=== PATIENT | male | born 1935 | race Caucasian/White ===

== ENCOUNTER 2021-03-26 08:10 | Outpatient (CLI) | payer MEDICARE, OTHER, SELFPAY ==
--- NOTE | ~2021-03-26 | CT_ITS ---
EXAMINATION:CT diagnostic chest wo con DATE: 03/26/2021 08:43 INDICATION: Thoracic aortic aneurysm. TECHNIQUE: Computed tomography (CT) of the chest was performed without intravenous contrast. Automate d exposure control and iterative reconstruction technique were employed. The dose-length product (DLP ) was 232.09 mGy-cm. COMPARISON: None. FINDINGS: There is mild scarring at the lung apices. There is peripheral septal thickening in the inf erior lungs. There are subpleural bands in the lower lobes and lingula. A calcified right lung nodule and calcified right hilar lymph nodes are consistent with old granulomatous disease. No bronchiectas is or honeycombing. No pleural effusion. The heart size is normal. There are coronary artery calcific ations. No pericardial effusion. The aorta measures 4.5 cm at the sinuses of Valsalva, 4.2 cm at the sinotubular junction, 4.6 cm in the mid ascending aorta, 3.8 cm at the aortic isthmus, and 4.2 cm in the mid descending aorta. There is a moderate-sized sliding hiatal hernia. There is severe cervical s pondylosis and mild thoracic spondylosis. 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 IMPRESSION: 1. Aortic ectasia measuring up to 4.6 cm in mid ascending aorta. 2. Mild chronic interstitial lung disease. 3. Moderate-sized sliding hiatal hernia. Reviewed, dictated and finalized at location A. L [employer]
== END 2021-03-26 08:11 | disposition home or self-care (01) ==
LOC: ANHIMG 08:20
PROVIDERS: Visit Provider Internal Medicine Cardiovascular Disease
DX: I71.9 Aortic aneurysm of unspecified site, without rupture (principal); I10 Essential (primary) hypertension; Z86.79 Personal history of other diseases of the circulatory system; K44.9 Diaphragmatic hernia without obstruction or gangrene; J98.4 Other disorders of lung; I25.10 Atherosclerotic heart disease of native coronary artery without angina pectoris; M47.813 Spondylosis without myelopathy or radiculopathy, cervicothoracic region
CPT/HCPCS: 71250

== ENCOUNTER 2023-05-19 09:16 | Outpatient (CLI) | payer MEDICARE, OTHER, SELFPAY ==
--- NOTE | ~2023-05-19 | CT_ITS ---
EXAMINATION: CT diagnostic chest wo con DATE: 05/19/2023 10:16 INDICATION: History of thoracic aortic aneurysm repair TECHNIQUE: Computed tomography (CT) of the chest was performed without intravenous contrast. The dose -length product (DLP) was 268.64 mGy-cm. Automated exposure control and iterative reconstruction tech [employer] were employed. COMPARISON: 03/26/2021 FINDINGS: The lungs are free of acute opacities. There are chronic subpleural reticular opacities wit h a lower lung zone predominance. No bronchiectasis or honeycombing are identified. No pleural effusi on or pneumothorax. There is a moderate-sized sliding hiatal hernia. The heart size is normal. The as cending aorta measures 4.2 cm at the sinuses of Valsalva, 3.9 cm at the sinotubular junction, and 4.6 cm in the mid ascending aorta. The mid descending aorta measures up to 4.0 cm. There are no patholog ically enlarged thoracic lymph nodes. Calcified coronary artery atherosclerosis is noted. There is a 3.1 cm cyst of the right kidney upper pole. Severe cervical and lumbar spondylosis is noted. IMPRESSION: 1. Stable aortic ectasia measuring up to 4.6 cm in the mid ascending aorta. 2. Mild chronic interstitial lung disease without significant change. Reviewed, dictated and finalized at location F. [employer]
== END 2023-05-19 09:17 | disposition home or self-care (01) ==
PROVIDERS: Visit Provider Internal Medicine Cardiovascular Disease
DX: R91.8 Other nonspecific abnormal finding of lung field (principal); Z98.890 Other specified postprocedural states; Z86.79 Personal history of other diseases of the circulatory system
CPT/HCPCS: 71250

== ENCOUNTER 2023-06-22 14:47 | Outpatient (CLI) | payer MEDICARE, OTHER, SELFPAY ==
--- NOTE | ~2023-06-22 | CT_ITS ---
EXAMINATION: CT lumbar spine wo con DATE: 06/22/2023 15:05 INDICATION: Low back pain. TECHNIQUE: Computed tomography (CT) of the lumbar spine was performed without intravenous contrast. A utomated exposure control and iterative reconstruction technique were employed. The dose-length produ ct was 773.12 mGy-cm. COMPARISON: None FINDINGS: There is a moderate-sized sliding hiatal hernia. There is 22 degrees levoscoliosis of lumba r spine. There is 3 mm retrolisthesis of L1 on L2, L2 on L3, and L3 on L4. There is mild chronic ante rior wedging of T12 and L1 vertebral bodies. There is mildly decreased disc height at T12-L1 and hima rely decreased disc height from L1-L2 through L5-S1. The following disc levels are specifically discu ssed: L1-L2: The disc is bulging. There is moderate bilateral facet joint osteoarthritis. There is mild maxwell ateral neural foraminal stenosis. There is mild central canal stenosis. L2-L3: The disc is bulging. There is mild bilateral facet joint osteoarthritis. There is moderate rig ht and mild left neural foraminal stenosis. There is mild central canal stenosis. L3-L4: The disc is bulging. There is severe bilateral facet joint osteoarthritis. There is mild bilat eral neural foraminal stenosis. There is mild central canal stenosis. L4-L5: The disc is bulging. There is severe bilateral facet joint osteoarthritis. There is mild right and moderate left neural foraminal stenosis. There is mild central canal stenosis. L5-S1: The disc is bulging. There is severe bilateral facet joint osteoarthritis. There is moderate b ilateral neural foraminal stenosis. There is mild central canal stenosis. IMPRESSION: 1. Severe lumbar spondylosis. 2. Lumbar levoscoliosis. Reviewed, dictated and finalized at location A.
== END 2023-06-22 14:48 | disposition home or self-care (01) ==
PROVIDERS: Visit Provider Physician Assistant Surgical
DX: M47.896 Other spondylosis, lumbar region (principal)
CPT/HCPCS: 72131

== ENCOUNTER 2024-02-26 06:59 | Outpatient (CLI) | payer MEDICARE, OTHER, SELFPAY ==
[2024-02-26 08:01] LABS: Basophils Absolute Auto 0.1 K/mm3 (0.0-0.1); Eosinophils Absolute Auto 0.5 K/mm3 (0-0.3); Eosinophils Percent Auto 7.8 % (0-4.4); Hematocrit 38.4 % (42.0-52.0); Hemoglobin 12.7 g/dL (14.0-18.0); Immature Granulocyte Absolute 0.02 K/mm3 (0.00-0.031); Immature Granulocyte Percent A 0.3 % (0-0.5); Lymphocytes Absolute Auto 2.62 K/mm3 (0.9-3.2); Lymphocytes Percent Auto 38.7 % (18.3-44.2); Mean Corpuscular HGB Conc 33.1 g/dl (32-36); Mean Corpuscular Hemoglobin 29.4 pg (26-34); Mean Corpuscular Volume 88.9 fl (80-100); Mean Platelet Volume 8.8 fl (7.4-10.4); Monocytes Absolute Auto 0.6 K/mm3 (0.1-0.6); Monocytes Percent Auto 9.5 % (2.6-8.5); Neutrophils Absolute Auto 2.9 K/mm3 (1.3-6.7); Neutrophils Percent Auto 42.7 % (45.5-73.1); Platelet Count Result 244 k/mm3 (150-375); Red Blood Count 4.32 M/mm3 (4.6-6.20); Red Cell Distribution Width 12.9 % (11.5-14.5); White Blood Count 6.8 K/mm3 (4.5-10.0)
[2024-02-26 08:13] LABS: Alanine Aminotransferase 13 U/L (6-50); Albumin Level 4.3 g/dL (3.5-5.1); Alkaline Phosphatase 58 U/L (38-126); Anion Gap 7 mmol/L (4-12); Aspartate Amino Transferase 23 U/L (17-59); Bilirubin,Total 0.7 mg/dL (0.2-1.3); Blood Urea Nitrogen 26 mg/dL (9-20); Calcium 9.2 mg/dL (8.4-10.2); Carbon Dioxide 28 mmol/L (22-30); Chloride 98 mmol/L (98-107); Cholesterol 143 mg/dL (0-200); Estimated Glomerular Filt Rate 57; Glucose 124 mg/dL (65-110); HDL Direct 45 mg/dL; Potassium 3.8 mmol/L (3.4-5.0); Sodium 133 mmol/L (137-145); Triglycerides 133 mg/dL (<150)
[2024-02-26 08:24] LABS: LDL Cholesterol Direct 58 mg/dL
[2024-02-26 09:22] LABS: Microalbumin Urine Random 16.5 mg/L (0-16.7)
[2024-02-26 09:23] LABS: Creatinine Urine 99.3 mg/dL; MALB Creatinine Ratio 16.6 mg/g (0-30)
== END 2024-02-26 07:00 | disposition home or self-care (01) ==
LOC: ANHIMG 07:17 → ANHLAB 07:47
PROVIDERS: PCP Family Medicine; Visit Provider Family Medicine
DX: M47.816 Spondylosis without myelopathy or radiculopathy, lumbar region (principal); I10 Essential (primary) hypertension; Z13.6 Encounter for screening for cardiovascular disorders; Z13.1 Encounter for screening for diabetes mellitus
CPT/HCPCS: 36415; 80053; 80061; 82043; 83036; 85025

== ENCOUNTER 2024-03-01 11:00 | Outpatient (CLI) | payer MEDICARE, OTHER, SELFPAY ==
[2024-03-01 11:29] LABS: Basophils Absolute Auto 0.1 K/mm3 (0.0-0.1); Basophils Percent Auto 0.9 % (0.2-1.2); Eosinophils Absolute Auto 0.3 K/mm3 (0-0.3); Eosinophils Percent Auto 3.4 % (0-4.4); Hematocrit 40.8 % (42.0-52.0); Hemoglobin 13.8 g/dL (14.0-18.0); Immature Granulocyte Absolute 0.02 K/mm3 (0.00-0.031); Immature Granulocyte Percent A 0.2 % (0-0.5); Lymphocytes Absolute Auto 3.41 K/mm3 (0.9-3.2); Lymphocytes Percent Auto 37.6 % (18.3-44.2); Mean Corpuscular HGB Conc 33.8 g/dl (32-36); Mean Corpuscular Hemoglobin 30.1 pg (26-34); Mean Corpuscular Volume 89.1 fl (80-100); Mean Platelet Volume 8.6 fl (7.4-10.4); Monocytes Absolute Auto 0.9 K/mm3 (0.1-0.6); Monocytes Percent Auto 9.9 % (2.6-8.5); Neutrophils Absolute Auto 4.3 K/mm3 (1.3-6.7); Platelet Count Result 270 k/mm3 (150-375); Red Blood Count 4.58 M/mm3 (4.6-6.20); White Blood Count 9.1 K/mm3 (4.5-10.0)
[2024-03-01 11:57] LABS: Iron 78 ug/dL (49-181)
[2024-03-01 12:07] LABS: Percent Iron Saturation 20 % (20-50)
--- OUTSIDE RECORDS SUMMARY | 2024-03-01 12:34 | XMS_ITS | Data Portability ---
Author Organization [place] - [facility], Main Office Address [address] [place] [address] Care Team Providers Care Load Blocker Name Role Phone Unavailable Primary Care Provider Unavailable Referring Provider [phone] Assessment Encounter Date Assessment Date Assessment LastModified by Organization Details LastModified Time 06/23/2022 06/23/2022 Patient has chronic low back pain and sacroiliac pain without radiculopathy. 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 We talked about treatment options today in detail I offered him an MRI scan possible epidural steroid injections versus simple steroid injections into the sacroiliac bursa bilaterally and oral prednisone. He wanted proceed with more conservative measures for now. Therefore under sterile conditions at his request I injected the patient's bilateral sacroiliac bursa in the office with 4 cc 0.5% ropivacaine and 20 mg of Kenalog each. The patient tolerated procedure well. We will do a short course of oral prednisone he will hold the Celebrex while he is on the prednisone then repeat the Celebrex course. He has a prescription for this already. He is going to continue with his home exercise program he declined formal therapy today. I will see him back in 6 weeks to see what impact treatment has had. He voiced understanding agrees above plan certainly if his symptoms worsen or change he is instructed to call immediately. Not available 06/23/2022 12:04:38 07/28/2022 07/28/2022 The patient has chronic low back pain and advanced degenerative changes lumbar spine with stenosis. We will get an MRI scan to evaluate the degree of stenosis possibly do epidural steroid injections we will also get him started with a course of physical therapy he has been trying to do it on his own at home but this is really not helping. He has declined further medication today because he states this did not really help much either. He states the pain is about a 7 on a scale 1-10 most days. We will see him back after the MRI is done talk about further treatment options if it worsens or changes he is instructed to call he voiced understanding agrees above plan. Not available 07/28/2022 10:00:18 06/06/2023 06/06/2023 The patient has chronic low back pain with some radiculopathy he states previous conservative measures really have not given him much relief. He has severe degenerative changes in lumbar spine likely has significant stenosis. We talked about treatment options today he would like to get an MRI scan and consider epidural steroid injections. His chest x-ray was clear no metallic implants are noted. We will get the MRI scan start a course of oral prednisone he will hold on the Celebrex while he is on the oral prednisone. I will see him back after the MRI is done we will talk further he voiced understanding agrees above plan certainly if his symptoms worsen or change he will call immediately. Not available 06/06/2023 14:28:37 06/29/2023 06/29/2023 By previous x-ray CT exam and physical exam the patient is noted to have low back pain chronic in nature with recent more acute exacerbation and radiculopathy down the right lower extremity. We talked about treatment options today in detail we will try a course of physical therapy as well as referral to pain management /spine surgeon to see if he can get some relief from possible lumbar epidural steroid injections. At 88 years of age and other medical issues he has not a great candidate for surgical intervention particularly due to the fact that he has such severe degenerative changes lumbar spine. He has failed a course of conservative measures otherwise. We will get a referral set up for him I will see him back as needed. If his symptoms worsen or change suddenly he is instructed call he voiced understanding agrees with the above plan. Not available 06/29/2023 15:51:43 Plan of Treatment Reminders Order Date Submit Date Provider Last Modified By Organization Details Last Modified Time Details Appointments None recorded. Lab None recorded. Referral physical therapist referral - please contact patient to schedule 2022 023 [email or web address] [facility] [place] [facility], [address], [place], [address], 3 09:07:52 physical therapist referral - patient to schedule 2023 024 [email or web address] [facility] [place] [facility], [address], [place], [address], 4 10:49:34 pain managemen t referral - Please contact patient to schedule 2023 024 [facility], [address], [address] [address], [place], [address], 4 16:57:03 Procedures injection /aspirati on joint/bur sa (PROC) - in office procedure , administe red by provider 2022 023 [email or web address] In-Office Order, Internal Use Only DO Not Attach Compendium DO Not Attach Compendium, Do Not Delete/merge, [id number] 3 11:51:19 Surgeries None recorded. Imaging XR, lumbar spine 2022 023 [email or web address] [facility] [place], [address] [facility] [address], [place], [address], 3 13:37:02 MRI, lumbar spine, w/o contrast 2022 023 [email or web address] [facility], [address], [place], [address], 3 12:15:39 XR, chest, 2 view 2023 024 [facility] [place], [address] [facility] [address], [address], 4 15:20:21 Medication Orders prednison e 10 mg tablets in a dose pack 2022 023 [email or web address] [facility], [address] [place] [address], [address], 4 13:42:12 Kenalog 10 mg/mL suspensio n for injection 2022 023 [email or web address] , [address] [place] [address], [address], 4 13:41:51 ropivacai ne (PF) 5 mg/mL (0.5 %) injection solution 2022 023 [email or web address] , [address] , [place], [address], 4 13:42:18 prednison e 10 mg tablets in a dose pack 2023 024 [email or web address] [id number], [address] [facility] [address] [place] [address], [id number], 13:42:12 Patient TargetsNo targets recorded. Patient InstructionsNo instructions recorded. Reason for Referral Physical Therapist Referral for Lumbar spondylosis please contact patient to schedule Referring Physician: Ryder Randall, Orthopedic Surgery, Encounter Date: 07/28/2022 Physical Therapist Referral for Lumbar radiculopathy patient to schedule Referring Physician: Ryder Randall Orthopedic Surgery, Encounter Date: 06/29/2023 Pain Management Referral for Lumbar radiculopathy Please contact patient to schedule Referring Physician: Ryder Randall Orthopedic Surgery, Encounter Date: 06/29/2023 Results Created Date Observation Date Name Description Value Unit Range Abnormal Flag Note LastModifiedBy Organization Detail LastModifiedTime 06/24/19 23 XR, lumba r spine No observ ation record ed. [facility] [place] [place] [address], [place], [address], 06/23/2022 12:05:56 06/06/19 24 XR, chest , 2 view No observ ation record ed. [facility] [place] [address], [place], [address], 06/06/2023 14:30:32 06/22/19 24 06/22/2023 CT, lumba r spine , w/o contr ast No observ ation record ed. [email or web address] [facility] [address] [facility] [address], [place], [address], 06/23/2023 09:12:34 Result Notes None recorded. Problems Name Problem SNOMED Code Status Onset Date Resolution Date Notes Provider Name and Address Organization Details Recorded Time Low back pain 233816234 Active 2022 BENITO Hanna [facility] 3 11:14:51 Lumbar spondylosis 175672130 Active 2022 GREGG Gong [address], [place], [address], [email or web address] 3 12:06:09 Bilateral sacroiliac joint pain 5004740346561 9104 Active 2022 GREGG Gong [address], [address], [place], [address], [email or web address] 3 12:06:20 Lumbar radiculopat hy 179186085 Active 2023 GREGG Gong [address], [address], [place], [address], [email or web address] 4 14:30:44 Degenerativ e lumbar spinal stenosis 155522805 Active 2023 GREGG Gong [address], [address], [place], [address], [email or web address] 4 15:51:51 Problem Notes None recorded. 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, [place], [address], 06/23/2022 12:05:56 06/06/2023 XR, chest, 2 view completed [facility] [place] [address], [place], [address], 06/06/2023 14:30:32 06/22/2023 CT, lumbar spine, w/o contrast completed [address] [facility] [address], [place], [address], 06/23/2023 09:12:34 Procedure Notes None recorded. Medical Equipment None Reported. Allergies Allergen ID Allergen Name Allergen Category Reaction Reaction Severity Criticality Documentation Date Start Date Code Code System Note Provider Name and Address Organization Details Recorded Time 32391 Medicinal product containin g penicilli n and acting as antibacte rial agent (product) medicatio n Not available Not available Not available 06/23/2022 47739 05 SNBENITO Beck [place] [facility] 11:09:12 Medications Name Sig Start Date Stop Date Status Note LastModified by Organization Details LastModified Time prednisone 10 mg tablet 06/28 completed Not Available Not Available Not Available simvastatin 10 mg tablet Take 1 tablet every day by oral route. active Not Available Not Available No t Available aspirin 81 mg tablet,mar yed release active Not Available Not Available Not Available pantoprazol e 20 mg tablet,mar yed release active Not Available Not Available Not Available prednisone 10 mg tablets in a dose pack Take 1 tab by mouth, 3 times a day for 3 daysTake 1 tab by mouth 2 times a day for 2 daysTake 1 tab by mouth once a day for 1 day 06/28 completed Not Available Not Available Not Available aspirin 325 mg tablet,mar yed release 06/23 completed Not Available Not Available Not Available Kenalog 10 mg/mL suspension for injection Take 40 mg by injection route. 06/28 completed [facility]: 0003- [phone]- 20 Not Available Not Available Not Available amlodipine 10 mg tablet Take 1 tablet every day by oral route. active Not Available Not Available No t Available lidocaine 5 % topical patch 06/23 completed Not Available Not Available Not Available metoprolol tartrate 50 mg tablet 06/23 completed Not Available Not Available Not Available folic acid 1 mg tablet active Not Available Not Available Not Available hydrochloro thiazide 25 mg tablet active Not Available Not Available No t Available celecoxib 100 mg capsule 06/28 completed Not Available Not Available Not Available lisinopril 40 mg tablet active Not Available Not Available Not Available fluticasone propionate 50 mcg/actuati on nasal spray,suspe nsion active Not Available Not Available Not Available metoprolol tartrate 25 mg tablet active Not Available Not Available No t Available Fish Oil 340 mg-1,000 mg capsule active Not Available Not Available Not Available ropivacaine (PF) 5 mg/mL (0.5 %) injection solution Take 40 mg by injection route. 06/28 completed [facility] [phone] -[phone] Not Available Not Available Not Available Vitals Date Recorded Body height Body mass index (BMI) Body weight Provider Name and Address Organization Details Last Updated DateTime 06/23/2022 172.72 cm 25.8 kg/m2 41332.7 g Deysi Roque CNA [employer] [facility] 06/23/2022 11:08:40 Date Recorded Body height Body mass index (BMI) Body weight Provider Name and Address Organization Details Last Updated DateTime 07/28/2022 172.72 cm 25.8 kg/m2 64603.7 g JEWEL Danielle [employer] [facility] 07/28/2022 09:25:23 Date Recorded Body height Provider Name an d Address Organization Details Last Updated DateTime 06/06/2023 172.72 cm Deysi Roque CNA [employer] [facility] 06/06/2023 14:00:54 Date Recorded Body height Body mass index (BMI) Body weight Provider Name and Address Organization Details Last Updated DateTime 06/29/2023 172.72 cm 25.8 kg/m2 43432.7 g Deysi Roque CNA [place] [facility] 06/29/2023 13:41:20 Social History Question Answer Notes LastModified by Organizat ion Details LastModified Time Tobacco Smoking Status Never Smoker BENITO Hanna, KIRT Mccrary [facility] [place] [facility] [employer] [facility] 06/23/2022 11:13:05 What Is Your Level Of Alcohol Consumption? None [email or web address] Information not available 06/29/2023 Sex: Unknown Functional Status None recorded. Mental Status None recorded. Family History Relationship Description Onset Age of this Age Resolved Age Notes LastModified by Organization Details LastModified Time Father Hypertensive disorder [email or web address] Not available 2022 11:12:41 Medical History Condition Response HYPERTENSION Y CANCER: SPECIFY Y Past Encounters Encounter ID Performer Location Encounter Start Date Encounter Closed Date Diagnosis/Indication Diagnosis SNOMED-CT Code Diagnosis ICD10 Code [id number] GREGG Gong [facility] [place] [address] [place] [address] 06/23/2022 10:47:37 06/23/2022 13:37:01 Low back pain 553868196 M54.50 Lumbar spondylosis 96243 0009 M47.896 Bilateral sacroiliac joint pain 9315844330 7473704 M53.3 [id number] GREGG Gong [facility] [place] [address] [place] [address] 07/28/2022 09:22:18 07/28/2022 10:54:55 Low back pain 642009522 M54.50 Lumbar spondylosis 43450 0009 M47.896 Bilateral sacroiliac joint pain 9191321281 3658796 M53.3 [id number] GREGG Gong [facility] [place] [address] [place] [address] 06/06/2023 13:52:10 06/06/2023 14:36:29 Bilateral sacroiliac joint pain 1050190392 9854737 M53.3 Lumbar spondylosis 77309 0009 M47.896 Low back pain 594677058 M54.50 Lumbar radiculopathy 128 053231 M54.16 [id number] GREGG Gong [facility] [place] [address] [facility] [address] [place] [address] 06/29/2023 13:19:19 06/29/2023 14:12:31 Low back pain 862761386 M54.50 Lumbar radiculopathy 128 891057 M54.16 Bilateral sacroiliac joint pain 4192003729 8637416 M53.3 Lumbar spondylosis 40694 0009 M47.896 Degenerati ve lumbar spinal stenosis 323615706 M48.061 Health Concerns Section Related Observation LastModified by Organization Detai ls LastModified Time None Recorded Concern Status LastModified by Organization Details LastModified Time None Recorded Advance Directives Directive None Recorded Payers Encounter Date Sequence Insurance Name Policy Number Policy Anderson Covered Member ID Anderson Member ID Guarantor Name 06/23/2022 1 [place] Sascha A Emert [id number] Sascha Emert 06/23/2022 2 [employer] - FOR LIFE (MEDICARE SUPPLEMENT) Sascha Emert [id number] Sascha Emert 07/28/2022 1 [place] Sascha A Emert [id number] Sascha Emert 07/28/2022 2 [employer] - FOR LIFE (MEDICARE SUPPLEMENT) Sascha Emert [id number] Sascha Emert 06/06/2023 1 [place] Sascha A Emert [id number] Sascha Emert 06/06/2023 2 [employer] - FOR LIFE (MEDICARE SUPPLEMENT) Sascha Emert [id number] Sascha Emert 06/29/2023 1 [place] Sascha A Emert [id number] Sascha Emert 06/29/2023 2 [employer] - FOR LIFE (MEDICARE SUPPLEMENT) Sascha Emert [id number] Sascha Emert Notes Date Note Type Note Provider Name and Address Organization Details Recorded Time 06/23/2022 text/html Patient is an 87-year-old male who presents with a chronic history of low back pain. He states it has been going on at least a year. Denies any trauma or injury. He was seen elsewhere about a year ago told that he had stenosis and degenerative changes in the lumbar spine Hey with her course of physical therapy was given Celebrex as well which really has not done a whole lot for him. He had to give up golf he does not really have any pain at rest if he stands or walks for too long it aggravates his symptoms. He had has no radicular pain down the legs no numbness or tingling or weakness no bowel or bladder symptoms. He would like to be a little more active, he has aching pain a 5-6 on a scale of 1-10 by his report when it is at its worst. It does not keep him awake at night. His main pain is throbbing and aching throughout the lumbar region into the sacroiliac joints. He comes in today for initial evaluation treatment after failing other conservative measures.Past medical history sheet was reviewed and signed on the intake sheet today's date drug allergies current medications family social history previous surgical history 10 point review of systems was reviewed and discussed in detail today with the patient. GREGG Gong [address] [facility] [facility] [address], [place], [address], [place] [facility] 06/23/2022 12:06:57 07/28/2022 text/html patient returns with continued low back pain. He has a chronic history of back pain we treated him last time with oral prednisone he states he has also taken Celebrex previously which really did not give him a whole lot of relief. If he stands or walks for too long of a. He has significant pain that he had to give up golf because of his back pain. We did shots of cortisone into the bilateral sacroiliac bursa last time this gave him about 10 days of moderate relief however his pain has returned. Previous x-rays show advanced degenerative changes with levoscoliosis of the lumbar spine with significant changes at L2-3 and L3-4 levels. He has mild spondylolisthesis at L2-3 complete loss of disc height at L2-3 and L3-4 levels. Hypertrophic changes are noted as well. He likely has stenosis causing radicular back pain. He has no weakness no bowel or bladder symptoms. Comes in today to talk about further evaluation treatment. Previously has declined MRI scan I think it is time to get 1 however. GREGG Gong [address], [place], [address], [facility] 07/28/2022 10:00:52 06/06/2023 text/html Patient returns complaining of low back pain he has had chronic issues for several years I saw him 10 months ago we did a course of physical therapy and oral prednisone he states that this helped briefly but his back pain continues. I told him to follow up if treatment did not work but he has not been here since July of 2022. He has been putting off following up trying to put up with it he uses ice which seems to help somewhat. He states now he is having a lot of pain on the right side with some radiculopathy into the right buttock and down his leg a little bit but not all the way down past the knee. He states he has had surgery on his aortic arch he is not sure if there was any sort of metallic implant and not sure if he can not have an MRI scan. This was done in 1998. I have told him we will get a chest x-ray today to see if there is any metallic components to his previous heart surgery. If not we will proceed with an MRI scan. In the meantime he denies any weakness no bowel or bladder symptoms no numbness or tingling but has enough pain and aching in his low back that he is limited in what he can do he had to quit playing golf because he cannot stand or walk for long periods. He states today the pain is about a 4 on a scale 1-10 but some days it is much worse. He comes in today for further evaluation and possible treatment of his chronic back pain. Previous x-rays showed significant severe lumbar spondylosis with levoscoliosis and significant changes at L2-3 and 3 4 levels he has mild spondylolisthesis at L2-3 complete loss of disc height at L2-3 and L3-4 levels with hypertrophic changes noted. He likely has stenosis that causes his chronic pain and radicular symptoms. His past medical history is otherwise unchanged. GREGG Gong [address], [place], [address], [facility] 06/06/2023 14:31:14 06/29/2023 text/html patient returns for results of his lumbar MRI scan. Patient has been having some chronic low back pain with radicular pain down the right lower extremity. There was a question of whether not he could have an MRI scan due to the fact that he has had a previous aortic aneurysm repair with mesh. We did a chest x-ray to make sure there was no metallic implants and none was noted. I then ordered an MRI scan however [facility] decided on her own to proceed with a plain CT scan I would have ordered a CT myelogram but I never was consulted on this so they did a plain CT scan instead. Unfortunately this is not an ideal test for this situation but the results show what appear to be disc bulging at multiple levels he has severe spondylosis with levoscoliosis degenerative nature throughout the spine. L1-2 shows mild bilateral neural foraminal stenosis mild central canal stenosis. L2-3 shows mild bilateral facet joint osteoarthritis moderate right and mild left neural foraminal stenosis mild central canal stenosis. L3-4 shows disc bulging with severe bilateral facet joint osteoarthritis mild bilateral neural foraminal stenosis mild central canal stenosis. L4-5 shows disc bulging mild right and moderate left neural foraminal stenosis mild central canal stenosis L5-S1 shows severe bilateral facet osteoarthritis moderate bilateral neural foraminal stenosis and mild central canal stenosis. I have reviewed the CT scan in detail today with the patient most of his pain is localized to the right side with radiculopathy down the right leg. Denies any bowel or bladder symptoms no weakness but states he is unable to go about his daily activities as he would like he has a hard time getting around he has nocturnal awakening because of his back pain. He comes in today for test results and to discuss treatment options from here. A new past medical history sheet was reviewed and signed on intake sheet of today's date drug allergies current medications family social history previous surgical history 10 point review of systems was reviewed and discussed in detail today with the patient. GREGG Gong [address] [facility], [address], [place], [address], [facility] [employer] 06/29/2023 15:52:22
--- OUTSIDE RECORDS SUMMARY | 2024-03-01 12:34 | XMS_ITS | Continuity of Care Document ---
Author Organization [facility] Address [address] [place] [address] [place] [address] Phone Care Team Providers Care Button Spindler Name Role Phone Juan Diego Drew MD Unavailable Unavailable Advance Directives Directive Yes / No Effective Date File Name No Information Encounters Encounter Description Practice Location Reason(s) For Visit Diagnoses Date Provider Providers Copied on Encounter [facility], [address] [place] [address] [address], [place], [place], [id number], [place] tel:[phone] [facility] No Information [address]. [address] [facility] [address], [place], [place], [id number], [place]. tel:[phone] Family History Family Member Type Diagnosis Age At Onset No Information Payers Payer name Insurance type Covered green party ID Authoriza tion(s) Medicare [facility] [id number] For Life Mdcr Supp [place] [id number] Social History Type Description Quantity Date Captured Comments Sex Male Smoking Status No Information Chief Complaint And Reason For Visit No Information Reason For Referral Reason For Referral No Information History Of Present Illness Encounter Date Complaint History Of Prese nt Illness No Information Functional Status Date Functional Assessmen t No Information Instructions Date Instruction Additional Infor mation No Information Assessments Type Assessment Date No Information Patient Care Teams Name Effective Dates (start - stop) Status Members No Information
[2024-03-01 12:56] LABS: Folic Acid > 20.0 ng/mL (2.76->20)
== END 2024-03-01 11:01 | disposition home or self-care (01) ==
LOC: ANHLAB 11:02
PROVIDERS: PCP Family Medicine; Visit Provider Family Medicine
DX: D64.9 Anemia, unspecified (principal)
CPT/HCPCS: 36415; 82607; 82728; 82746; 83540; 83550; 85025

== ENCOUNTER 2024-03-06 11:50 | Outpatient (CLI) | payer MEDICARE, OTHER, SELFPAY ==
[2024-03-06 12:23] LABS: Basophils Absolute Auto 0.1 K/mm3 (0.0-0.1); Basophils Percent Auto 0.9 % (0.2-1.2); Eosinophils Absolute Auto 0.6 K/mm3 (0-0.3); Eosinophils Percent Auto 7.4 % (0-4.4); Hematocrit 36.3 % (42.0-52.0); Hemoglobin 12.6 g/dL (14.0-18.0); Immature Granulocyte Absolute 0.02 K/mm3 (0.00-0.031); Immature Granulocyte Percent A 0.2 % (0-0.5); Lymphocytes Absolute Auto 2.82 K/mm3 (0.9-3.2); Lymphocytes Percent Auto 34.9 % (18.3-44.2); Mean Corpuscular HGB Conc 34.7 g/dl (32-36); Mean Corpuscular Hemoglobin 30.3 pg (26-34); Mean Corpuscular Volume 87.3 fl (80-100); Mean Platelet Volume 8.3 fl (7.4-10.4); Monocytes Percent Auto 12.7 % (2.6-8.5); Neutrophils Absolute Auto 3.5 K/mm3 (1.3-6.7); Neutrophils Percent Auto 43.9 % (45.5-73.1); Platelet Count Result 246 k/mm3 (150-375); Red Blood Count 4.16 M/mm3 (4.6-6.20); Red Cell Distribution Width 12.7 % (11.5-14.5); White Blood Count 8.1 K/mm3 (4.5-10.0)
== END 2024-03-06 11:51 | disposition home or self-care (01) ==
PROVIDERS: PCP Family Medicine; Visit Provider Family Medicine
DX: M47.816 Spondylosis without myelopathy or radiculopathy, lumbar region (principal)
CPT/HCPCS: 36415; 85025; 88309

== ENCOUNTER 2024-04-16 19:34 | Emergency (ER) | payer MEDICARE, OTHER, SELFPAY ==
--- NOTE | ~2024-04-16 | XR_ITS ---
EXAMINATION: XR chest 1V portable DATE: 04/16/2024 19:58 INDICATION: Syncope. Weakness. TECHNIQUE: A single frontal view of the chest was obtained. COMPARISON: Chest CT 05/19/2023 FINDINGS: There is no pneumonia, pleural effusion, or pneumothorax. The heart size is normal. There i s a moderate-sized hiatal hernia. 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 IMPRESSION: 1. Moderate-sized hiatal hernia. Reviewed, dictated and finalized at location A. CAL HACKER
--- NOTE | 2024-04-16 19:36 | ECG_ITS ---
Test Date: 2024-04-16 19:47:24 Measurements Intervals [place] Rate: 80 P: 37 CA: 323 QRS: -43 QRSD: 109 T: -8 QT: 383 QTc: 443 Interpretive Statements SINUS RHYTHM WITH FIRST DEGREE AV BLOCK MARKED LEFT AXIS DEVIATION [QRS AXIS < -30] No previous ECG available for comparison Electronically Signed On 04-17-2024 15:53:32 ESTIMATOR AND DRAFTER SUPERVISOR by Aditi Henderson M.D.
[2024-04-16 19:37] VITALS: BP 99/80; PULSE 80; RESP 20; TEMP 36.6; O2SAT 99
[2024-04-16 19:43] VITALS: O2SAT 100
[2024-04-16 19:44] LABS: Basophils Percent Auto 0.4 % (0.2-1.2); Eosinophils Absolute Auto 0.1 K/mm3 (0-0.3); Eosinophils Percent Auto 0.8 % (0-4.4); Hematocrit 43.4 % (42.0-52.0); Hemoglobin 14.3 g/dL (14.0-18.0); Immature Granulocyte Absolute 0.02 K/mm3 (0.00-0.031); Immature Granulocyte Percent A 0.3 % (0-0.5); Lymphocytes Absolute Auto 1.66 K/mm3 (0.9-3.2); Lymphocytes Percent Auto 21.4 % (18.3-44.2); Mean Corpuscular HGB Conc 32.9 g/dl (32-36); Mean Corpuscular Hemoglobin 29.7 pg (26-34); Mean Corpuscular Volume 90.2 fl (80-100); Mean Platelet Volume 8.4 fl (7.4-10.4); Monocytes Absolute Auto 0.4 K/mm3 (0.1-0.6); Monocytes Percent Auto 4.9 % (2.6-8.5); Neutrophils Absolute Auto 5.6 K/mm3 (1.3-6.7); Neutrophils Percent Auto 72.2 % (45.5-73.1); Platelet Count Result 209 k/mm3 (150-375); Red Blood Count 4.81 M/mm3 (4.6-6.20); White Blood Count 7.8 K/mm3 (4.5-10.0)
--- NOTE | 2024-04-16 20:11 | ED_ITS ---
HPI - Syncope General Chief Complaint: Weakness Stated Complaint: syncope, diarrhea Time Seen by Provider: 04/16/24 19:53 History of Present Illness HPI narrative: 88-year-old male with a past medical history including hypertension, GERD, previous thoracic aortic aneurysm status post repair in 1998. Patient presents to the emergency department today after having a syncopal episode at home that was witnessed by family. Patient states that he was having cold clammy sweats and felt weak right before he passed out. He is not following his head, was able to be caught in his walker. Patient woke up several seconds later, complaining of weakness that has slowly resolved and presently he states he is asymptomatic. He endorses that he was having constipation for the last few days and took 2 stool softeners including Dulcolax then had an episode of voluminous diarrhea. This preceded the syncopal event. Patient states this is not the 1st time this has happened to him and his daughter present at bedside states that a very similar event happened last year and then several years prior all related to constipation followed by syncope. Patient presently states he does not feel symptomatic and denies any chest pain, shortness a breath, abdominal pain, back pain, nausea, vomiting, fever, chills. He states he thinks he is not eating or drinking as much as he should and does appear slightly dry. Related Data Home Medications ?Medication ?Instructions ?Recorded ?Confirmed ?Last Taken ?Type aspirin 81 mg tablet,delayed 81 mg PO DAILY 02/21/24 03/21/24 Unknown History release (Adult Low Dose Aspirin) hydrochlorothiazide 25 mg tablet 25 mg PO DAILY 02/21/24 03/21/24 Unknown History lisinopril 40 mg tablet 40 mg PO DAILY 02/21/24 03/21/24 Unknown History metoprolol tartrate 25 mg tablet 25 mg PO BID 02/21/24 03/21/24 Unknown History pantoprazole 20 mg tablet,delayed 20 mg PO QAM 02/21/24 03/21/24 Unknown History release simvastatin 10 mg tablet 10 mg PO DAILY 02/21/24 03/21/24 Unknown History Allergies Allergy/AdvReac Type Severity Reaction Status Date / Time Penicillins AdvReac Unknown Unknown Verified 04/16/24 19:43 Review of Systems 2 Review of Systems: As reviewed above in HPI ON LICENSE OF [facility] Surgical History Surgical History H/O vasectomy 1972 H/O thoracic aortic aneurysm repair 02/1999 H/O hernia repair Left and right [id number] History of ankle surgery 1953 Family History Family History Mother Heart disease Father Hypertension Sibling Breast cancer Social History Social History Smoking status: Never smoker Alcohol intake: never Substance use: never Living arrangements: with family Occupation/Education: retired Gender identity (if verbalized by the patient): Male Exam 2 Narrative: GENERAL: [Well-appearing, well-nourished, and in no acute distress.] HEAD: [Normocephalic, atraumatic.] EYES: [PERRLA and EOMI.] ENT: Nares clear, no rhinorrhea or epistaxis. Mucous membranes dry and tacky. NECK: Supple. CHEST: [Clear to auscultation. No respiratory distress.] HEART: [Regular rate and rhythm]. No murmur heard. [Normal peripheral pulses.] ABDOMEN: [Soft, nondistended], [nontender], [No rigidity or guarding] EXTREMITIES: Normal range of motion. [No edema.] SKIN: Warm, dry, no rash. NEURO: [No focal deficits]. Alert and oriented [x3.] PSYCH: [Normal mood and affect.] Course Vital Signs Vital signs: Vital Signs Temperature 36.6 C 04/16/24 19:37 Pulse Rate 80 04/16/24 19:37 Respiratory Rate 20 04/16/24 19:37 Blood Pressure 99/80 L 04/16/24 19:37 Pulse Oximetry 99 04/16/24 19:37 Oxygen Delivery Room Air 04/16/24 19:37 Temperature 36.6 C 04/16/24 19:37 Pulse Rate 80 04/16/24 22:46 Respiratory Rate 16 04/16/24 22:46 Blood Pressure 120/58 L 04/16/24 22:46 Pulse Oximetry 97 04/16/24 22:46 Oxygen Delivery Room Air 04/16/24 19:43 MDM - Syncope MDM Narrative Medical decision making narrative: 88-year-old male with history of hypertension, GERD, previously repaired thoracic aortic aneurysm 26 years ago. Today patient presents to the emergency department after a witnessed syncopal event. Patient states that he was having constipation for last few days, took several Dulcolax today and had voluminous diarrhea followed by feeling clammy and having syncopal event while in the kitchen. Did not fall from standing height did not hit his head. He states he is asymptomatic presently and had only 20 seconds of syncope prior to waking up and acting appropriate. Witnessed by family. Has had similar events in the past. He has not any acute distress, asymptomatic at this time but does have a soft blood pressure with a systolic and 99/80, no tachycardia, fever, hypoxia. He does appear dehydrated with dry tacky mucous membranes but otherwise not any acute distress. Soft nontender nondistended abdomen, nonfocal neurological assessment, no evidence of trauma, clear breath sounds. Given his age and risk factors a workup was ordered including cardiac assessment with CBC, BMP, LFTs, troponin, EKG, chest x-ray. Patient given 2 L of fluid hydration for resuscitation and will be re-evaluated. Patient was re-evaluated after fluid boluses. He remained asymptomatic and had improvement in his blood pressure to 120/58. Patient felt improved after fluids. Largely unremarkable workup with negative troponin, EKG without ischemic evidence but evidence of a first-degree AV block, chest x-ray without any pneumonia and CBC without any leukocytosis or anemia. Electrolytes show some likely dehydration which is consistent with his presentation, normal creatinine, normal glucose and normal LFTs. Patient and family felt comfortable with discharge at this time given patient's lack of symptoms and improvement with fluids. There were given strict return precautions an outpatient primary care provider follow-up instructions. Medical Records Attestation: I reviewed the patient's medical records. Lab Data Attestation: I reviewed the patient's lab results. 04/16/24 19:39 04/16/24 19:39 Labs: Lab Results 04/16/24 04/16/24 Range/Units 19:39 21:58 WBC 7.8 (4.5-10.0) K/mm3 RBC 4.81 (4.6-6.20) M/mm3 Hgb 14.3 (14.0-18.0) g/dL Hct 43.4 (42.0-52.0) % MCV 90.2 (80-100) fl MCH 29.7 (26-34) pg MCHC 32.9 (32-36) g/dl RDW 13.0 (11.5-14.5) % Plt Count 209 (150-375) k/mm3 MPV 8.4 (7.4-10.4) fl Immature Gran % (Auto) 0.3 (0-0.5) % Neut % (Auto) 72.2 (45.5-73.1) % Lymph % (Auto) 21.4 (18.3-44.2) % [place] % (Auto) 4.9 (2.6-8.5) % Eos % (Auto) 0.8 (0-4.4) % Baso % (Auto) 0.4 (0.2-1.2) % Lymph # (Auto) 1.66 (0.9-3.2) K/mm3 [place] # (Auto) 0.4 (0.1-0.6) K/mm3 Eos # (Auto) 0.1 (0-0.3) K/mm3 Baso # (Auto) 0.0 (0.0-0.1) K/mm3 Abs Immat Gran (auto) 0.02 (0.00-0.031) K/mm3 Absolute Neuts (auto) 5.6 (1.3-6.7) K/mm3 Absolute Nucleated RBC 0.000 (0.0-0.012) K/mm3 Nucleated RBC % 0.0 (0.0-0.2) % Sodium 130 L (137-145) mmol/L Potassium 3.9 (3.4-5.0) mmol/L Chloride 95 L (98-107) mmol/L Carbon Dioxide 20 L (22-30) mmol/L Anion Gap 15 H (4-12) mmol/L BUN 31 H (9-20) mg/dL Creatinine 1.13 (0.7-1.3) mg/dL Estim Creat Clear Calc 37 ml/min Estimated GFR > 60 (59 - ) Glucose 137 H (65-110) mg/dL Calcium 8.4 (8.4-10.2) mg/dL Total Bilirubin 0.6 (0.2-1.3) mg/dL AST 21 (17-59) U/L ALT 16 (6-50) U/L Alkaline Phosphatase 54 (38-126) U/L Troponin I < 0.012 (0.000-0.034) ng/mL Total Protein 7.0 (6.3-8.2) g/dL Albumin 3.9 (3.5-5.1) g/dL Urine Color Yellow (Yellow) Urine Appearance Clear (Clear) Urine pH 5.5 (5.0-9.0) Ur Specific [place] 1.022 (1.001-1.035) Urine Protein Trace (Negative) mg/dL Urine Glucose (UA) Negative (Negative) mg/dL Urine Ketones Trace H (Negative) mg/dL Ur Blood (Man) Negative (Negative) Urine Nitrate Negative (Negative) Urine Bilirubin Negative (Negative) Urine Urobilinogen 0.2 (<2.0) mg/dL Leukocyte Esterase Rfl Negative (Negative) SAURABH/UL Urine RBC 0-2 (0-2) /hpf Urine WBC 0-5 (0-3) /hpf Ur Squamous Epith Cells None seen (Few) /hpf Urine Bacteria None seen /hpf Urine Casts 0-2 Imaging Data Attestation: I personally reviewed and interpreted this imaging study as follows: My impression: Impressions Chest X-Ray 04/16/24 20:08 IMPRESSION: 1. Moderate-sized hiatal hernia. Discharge Plan Discharge Clinical Impression: Syncope, Constipation, Acute dehydration, Diarrhea due to drug Patient Disposition: Home, Self-Care Condition: Stable Instructions: Antibiotic Form, Dehydration (ED), Syncope (ED) Additional Instructions: Follow-up with regular primary care provider on outpatient basis. Hold off on taking any additional laxatives as you had diarrhea which led to some dehydration. Maintain good oral intake, you can use electrolyte replacement therapy such as Pedialyte or Gatorade if he did not want to have significant amounts of water. Return with any new or worsening concerns at any time or if you start developing any symptoms such as chest pain, difficulty breathing, headache or any other concerning features. Patient Language: Swiss Prescriptions: No Action lisinopril 40 mg tablet 40 mg PO DAILY metoprolol tartrate 25 mg tablet 25 mg PO BID hydrochlorothiazide 25 mg tablet 25 mg PO DAILY pantoprazole 20 mg tablet,delayed release (DR/EC) 20 mg PO QAM aspirin [Adult Low Dose Aspirin] 81 mg tablet,delayed release (DR/EC) 81 mg PO DAILY simvastatin 10 mg tablet 10 mg PO DAILY amlodipine 10 mg tablet 10 mg PO DAILY Qty: 90 3RF polyethylene glycol 3350 [Miralax] 17 gram/dose powder 17 g PO DAILY Qty: 119 0RF Senna Plus 8.6-50 mg capsule 1 tab-cap PO BID PRN (Reason: constipation) Qty: 60 0RF Follow-up/Referrals: Gayla Vallejo DO [Primary Care Provider] - Time of Disposition: 22:57
[2024-04-16 20:12] LABS: Alanine Aminotransferase 16 U/L (6-50); Albumin Level 3.9 g/dL (3.5-5.1); Alkaline Phosphatase 54 U/L (38-126); Anion Gap 15 mmol/L (4-12); Aspartate Amino Transferase 21 U/L (17-59); Bilirubin,Total 0.6 mg/dL (0.2-1.3); Blood Urea Nitrogen 31 mg/dL (9-20); Calcium 8.4 mg/dL (8.4-10.2); Carbon Dioxide 20 mmol/L (22-30); Chloride 95 mmol/L (98-107); Estimated CRCL calculation 37 ml/min; Estimated Glomerular Filt Rate > 60; Glucose 137 mg/dL (65-110); Potassium 3.9 mmol/L (3.4-5.0); Sodium 130 mmol/L (137-145)
[2024-04-16] MEDS: LACTATED RINGERS 1,000 ML 999 ML IV CONT ×2 (20:12→20:13)
--- OUTSIDE RECORDS SUMMARY | 2024-04-16 20:28 | XMS_ITS | Clinical Summary ---
Author Organization [facility] in [place] Address [address] [place] [address] Care Team Providers Care Head Charrer Name Role Phone Angel Gan Primary Care Provider [phone] Allergies Active Allergy Reactions Criticality Noted Date Comments Gemfibrozil Nausea & Vomiting Low 08/26/2008 Penicillins Unknown 03/22/2021 Medications simvastatin (ZOCOR) 10 mg tablet 1 Active lisinopriL (PRINIVIL,ZESTRI L) 40 mg tablet 1 Active Fish Oil 340-1,000 mg capsule 1 Active folic acid (FOLVITE) 1 mg tablet [address] (PROTONIX) 20 mg EC tablet 1 Active hydroCHLOROthiaz wagner (HYDRODIURIL) 25 mg tabletIndication s:Essential hypertension Take 1 tablet (25 mg total) by mouth daily Please dispense 90 tablet. Ignore a previous prescription that states dispense 30 day supply 90 tablet 3 2 Active amLODIPine (NORVASC) 10 mg tablet Take 1 tablet (10 mg total) by mouth daily 90 tablet 3 2 Active aspirin 81 mg enteric coated tabletIndication s:History of repair of thoracic aortic aneurysm Take 1 tablet (81 mg total) by mouth daily 30 tablet 11 2 Active metoprolol tartrate (LOPRESSOR) 25 mg immediate release tabletIndication s:History of repair of thoracic aortic aneurysm,Essenti al hypertension Take 1 tablet (25 mg total) by mouth 2 (two) times a day 60 tablet 11 2 Active celecoxib (CeleBREX) 100 mg capsule 3 Active Active Problems Problem Noted Date Diagnosed Date Syncope and collapse 12/06/2021 Mixed hyperlipidemia 03/25/2021 Essential hypertension 03/22/2021 History of repair of thoracic aortic aneurysm Surgical History Surgery Date Site/Laterality Comments AORTIC ANEURYSM REPAIR Medical History Medical History Date Comments Hypertension Hyperlipidemia Skin cancer Aorta aneurysm (HCC) Covid-19 Family History Medical History Relation Name Comments Alcohol abuse Brother 1 Heart failure Mother Relation Name Status Comments Brother 1 Brother 2 Brother 3 Father (Age 94) Mother (Age 69) Social History Tobacco Use Types Packs/Day Years Used Date Smoking Tobacco: Never Smokeless Tobacco: Never Tobacco Cessation:Counseling Given: Not Answered Personal Safety Answer Date Recorded Getting School Help Needed Not on file 05/17 Sex and Gender Information Value Date Recorded Sex Assigned at Not on file Legal Sex Male 3:15 AM CARD SETTER Gender Identity Not on file Sexual Orientation Not on file Obstetrics History Last Filed Vital Signs Vital Sign Reading Time Taken Comments Blood Pressure 144/60 05/22/2023 9:13 AM CARD SETTER Pulse 53 05/22/2023 9:13 AM CARD SETTER Temperature - - Respiratory Rate - - Oxygen Saturation 96% 05/22/2023 9:13 AM CARD SETTER Inhaled Oxygen Concentration - - Weight 77.6 kg (171 lb) 05/22/2023 9:13 AM CARD SETTER Height 172.7 cm (5' 8 ) 05/22/2023 9:13 AM CARD SETTER Body Mass Index 26 05/22/2023 9:13 AM CARD SETTER Plan of Treatment Health Maintenance Due Date Last Done Comments Depression Screening 1936 Fall Risk Assessment 1936 Hepatitis B Screening 1954 Well Visit 65+ 2001 Covid-19 Vaccine (4 - 2023-2 5 season) 2023 01/16/2021, 05/14/2020, 04/16/2020 Influenza Vaccine (#1) 2023 , 12/20/2019, 01/08/2019, Additional history exists DTaP/Tdap/Td Vaccine (2 - Td or Tdap) 02/02/2025 02/02/2015, 08/14/2008 Pneumococcal vaccine 65+ Completed 018, 02/02/2015, 02/16/2000 Zoster Vaccine Completed 04/10/2018, 11/28/[address] [place] [place] [address] [address] MEDICARE FOR LIFE MEDICARE FOR LIFE Care Teams Head Charrer Relationship Specialty Start Date End Date Angel Gan DO [address] [place] [address] PCP - General Internal Medicine 05/22/23
--- OUTSIDE RECORDS SUMMARY | 2024-04-16 20:28 | XMS_ITS | Referral Summary ---
Author Organization [facility] in [place] Address [address] [place] [address] Care Team Providers Care Warehouse Assistant Name Role Phone Angel Gan Primary Care Provider [phone] Allergies Active Allergy Reactions Criticality Noted Date [...] History of repair of thoracic aortic aneurysm Social History Tobacco Use Types Packs/Day Years Used Date Smoking Tobacco: Never Smokeless Tobacco: Never Tobacco Cessation:Counseling Given: Not Answered Personal Safety Answer Date Recorded Getting School Help Needed Not on file 05/17 Sex and Gender Information Value Date Recorded Sex Assigned at Not on file Legal Sex Male 3:15 AM MANUFACTURED BUILDINGS SUPERVISOR Gender Identity Not on file Sexual Orientation Not on file Last Filed Vital Signs Vital Sign Reading Time Taken Comments Blood Pressure 144/60 05/22/2023 9:13 AM MANUFACTURED BUILDINGS SUPERVISOR Pulse 53 05/22/2023 9:13 AM MANUFACTURED BUILDINGS SUPERVISOR Temperature - - Respiratory Rate - - Oxygen Saturation 96% 05/22/2023 9:13 AM MANUFACTURED BUILDINGS SUPERVISOR Inhaled Oxygen Concentration - - Weight 77.6 kg (171 lb) 05/22/2023 9:13 AM MANUFACTURED BUILDINGS SUPERVISOR Height 172.7 cm (5' 8 ) 05/22/2023 9:13 AM MANUFACTURED BUILDINGS SUPERVISOR Body Mass Index 26 05/22/2023 9:13 AM MANUFACTURED BUILDINGS SUPERVISOR Plan of Treatment Not on file Insurance MEDICARE [facility] [address] [address] [address] MEDICARE FOR LIFE Care Teams Warehouse Assistant Relationship Specialty Start Date End Date Angel Gan DO [address] [place] [address] PCP - General Internal Medicine 05/22/23
--- OUTSIDE RECORDS SUMMARY | 2024-04-16 20:28 | XMS_ITS | Data Portability ---
Author Organization [place] - [facility] [employer], Main Office Address [address] [place] [address] Care Team Providers Care Cocoa Room Operator Name Role Phone Unavailable Primary Care Provider [phone] Unavailable Referring Provider [phone] Assessment Encounter Date Assessment Date Assessment LastModified [...] contact patient to schedule 2022 023 [email or web address] [facility], [address], [place], [address], 3 09:07:52 physical therapist referral - patient to schedule 2023 024 [email or web address] [facility], [address], [place], [address], 4 10:49:34 pain managemen t referral - Please contact patient to schedule 2023 024 [facility], [address], [address] [address], [place], [address], 4 16:57:03 Procedures injection /aspirati on joint/bur sa (PROC) - in office procedure , administe red by provider 2022 023 [email or web address] In-Office Order, Internal Use Only DO Not Attach Compendium DO Not Attach Compendium, Do Not Delete/merge, [address] 3 11:51:19 Surgeries None recorded. Imaging XR, lumbar spine 2022 023 [email or web address] [facility] [place], [address] [facility] [address], [place], [address], 3 13:37:02 MRI, lumbar spine, w/o contrast 2022 023 [email or web address] [facility], [address], [place], [address], 3 12:15:39 XR, chest, 2 view 2023 024 [facility] [place], [address] [facility] [address], [address], 4 15:20:21 Medication Orders prednison e 10 mg tablets in a dose pack 2022 023 [email or web address] [facility], [address] [place] [address], [address], 4 13:42:12 Kenalog 10 mg/mL suspensio n for injection 2022 023 [email or web address] [facility], [address] [place] [address], [address], 4 13:41:51 ropivacai ne (PF) 5 mg/mL (0.5 %) injection solution 2022 023 [email or web address] [facility], [address] , [place], [address], 4 13:42:18 prednison e 10 mg tablets in a dose pack 2023 024 [email or web address] [id number], [address] [address] [place] [address], [id number], 13:42:12 Patient TargetsNo targets recorded. Patient InstructionsNo [...] No observ ation record ed. [facility] [address], [place], [address], 06/23/2022 12:05:56 06/06/19 24 XR, chest , 2 view No observ ation record ed. [facility] [address], [place], [address], 06/06/2023 14:30:32 06/22/19 24 06/22/2023 CT, lumba r spine , w/o contr ast No observ ation record ed. [email or web address] [facility] [address], [place], [address], 06/23/2023 09:12:34 Result Notes None recorded. Problems Name Problem SNOMED Code Status Onset Date Resolution Date Notes Provider Name and Address Organization Details Recorded Time Low back pain 030327521 Active 2022 BENITO Hanna [employer] 3 11:14:51 Lumbar spondylosis 083478549 Active 2022 GREGG Gong [address], [place], [address], [employer] 3 12:06:09 Bilateral sacroiliac joint pain 3902946979154 9104 Active 2022 GREGG Gong [address], [address], [place], [address], [employer] 3 12:06:20 Lumbar radiculopat hy 957963103 Active 2023 GREGG Gong [address], [address], [place], [address], [employer] 4 14:30:44 Degenerativ e lumbar spinal stenosis 819845682 Active 2023 GREGG Gong [address], [address], [place], [address], [employer] 4 15:51:51 Problem Notes None recorded. Procedures Surgical History Date Name Laterality Status Provider Name and Address Organization Details Recorded Time 8 aorto-profund a graft for repair of aneurysm completed Deysi Roque CNA [employer] 06/29/2023 13:42:53 Imaging Results Imaging Date Name Status LastModified by Organiz ation Details LastModified Time 06/23/2022 XR, lumbar spine completed [facility] [address], [place], [address], 06/23/2022 12:05:56 06/06/2023 XR, chest, 2 view completed [facility] [place] [address], [place], [address], 06/06/2023 14:30:32 06/22/2023 CT, lumbar spine, w/o contrast completed [address], [place], [address], 06/23/2023 09:12:34 Procedure Notes None recorded. Medical Equipment None Reported. Allergies Allergen ID Allergen Name Allergen Category Reaction Reaction Severity Criticality Documentation Date Start Date Code Code System Note Provider Name and Address Organization Details Recorded Time 43959 Product containin g penicilli n and antibioti c (product) medicatio n Not available Not available Not available 06/23/2022 79360 05 SNOMED BENITO Hanna, [facility] 11:09:12 Medications Name Sig Start Date Stop [...] 40 mg by injection route. 06/28 completed [facility]: 0003- 0494- 20 Not Available Not Available [...] 40 mg by injection route. 06/28 completed [facility] [phone] Not Available Not Available Not Available Vitals Date Recorded Body height Body mass index (BMI) Body weight Provider Name and Address Organization Details Last Updated DateTime 06/23/2022 172.72 cm 25.8 kg/m2 73259.7 g Deysi Roque CNA [facility] [employer] 06/23/2022 11:08:40 Date Recorded Body height Body mass index (BMI) Body weight Provider Name and Address Organization Details Last Updated DateTime 07/28/2022 172.72 cm 25.8 kg/m2 56891.7 g JEWEL Danielle ABODO [facility] [employer] 07/28/2022 09:25:23 Date Recorded Body height Provider Name an d Address Organization Details Last Updated DateTime 06/06/2023 172.72 cm Deysi Roque CNA [facility] [employer] 06/06/2023 14:00:54 Date Recorded Body height Body mass index (BMI) Body weight Provider Name and Address Organization Details Last Updated DateTime 06/29/2023 172.72 cm 25.8 kg/m2 17882.7 g BENITO Hanna - [facility] [employer] 06/29/2023 13:41:20 Social History Question Answer Notes LastModified by Organizat ion Details LastModified Time Tobacco Smoking Status Never Smoker Deysi Roque CNA null, [facility] [employer] 06/23/2022 11:13:05 What Is Your Level Of [...] Diagnosis/Indication Diagnosis SNOMED-CT Code Diagnosis ICD10 Code Diagnosis Note [id number] [facility] [address] [place] [address] 06/23/2022 10:47:37 06/23/2022 13:37:01 Low back pain 542216097 M54.50 Lumbar spondylosis 04409 0009 M47.896 Bilateral sacroiliac joint pain 2532015814 9715816 M53.3 [id number] GREGG [facility] [place] [address] [place] [address] 07/28/2022 09:22:18 07/28/2022 10:54:55 Low back pain 945829726 M54.50 Lumbar spondylosis 62216 0009 M47.896 Bilateral sacroiliac joint pain 0359697241 8374014 M53.3 [id number] GREGG Gong [facility] [address] [place] [address] 06/06/2023 13:52:10 06/06/2023 14:36:29 Bilateral sacroiliac joint pain 5838623507 7374455 M53.3 Lumbar spondylosis 73243 0009 M47.896 Low back pain 064213267 M54.50 Lumbar radiculopathy 128 511190 M54.16 [id number] [facility] [place] [address] [facility] [address] [place] [address] 06/29/2023 13:19:19 06/29/2023 14:12:31 Low back pain 585380761 M54.50 Lumbar radiculopathy 128 378317 M54.16 Bilateral sacroiliac joint pain 8858247953 4657430 M53.3 Lumbar spondylosis 61948 0009 M47.896 Degenerati ve lumbar spinal stenosis 525373999 M48.061 Health Concerns Section Related Observation LastModified by Organization Detai ls LastModified Time None Recorded Concern Status LastModified by Organization Details LastModified Time None Recorded Advance Directives Directive None Recorded Payers Encounter Date Sequence Insurance Name Policy Number Policy Anderson Covered Member ID Anderson Member ID Guarantor Name 06/23/2022 1 [place] Sascha A Emert [id number] Sascha Emert 06/23/2022 2 [employer] - FOR LIFE (MEDICARE SUPPLEMENT) Sascha Emert [id number] Sascha Emert 07/28/2022 1 [place] Sascha A Emert [id number] Sascha Emert 07/28/2022 2 [employer] - FOR LIFE (MEDICARE SUPPLEMENT) Sascha Emert [id number] Sascha Emert 06/06/2023 1 [place] Sascha A Emert [id number] Sascha Emert 06/06/2023 2 [employer] - FOR LIFE (MEDICARE SUPPLEMENT) Sascha Emert [id number] Sascha Emert 06/29/2023 1 [place] Sascha A Emert [id number] Sascha Emert 06/29/2023 2 [employer] - FOR LIFE (MEDICARE SUPPLEMENT) Sascha Emert [id number] Sascha Emert Notes Date Note Type Note [...] today with the patient. GREGG Gong [address] [facility] [facility], [place], [address], [place] [facility] [employer] 06/23/2022 12:06:57 07/28/2022 text/html patient returns with [...] GREGG Gong [address], [place], [address], [employer] 07/28/2022 10:00:52 06/06/2023 text/html Patient returns complaining [...] GREGG Gong [address], [place], [address], [employer] 06/06/2023 14:31:14 06/29/2023 text/html patient returns for [...] I then ordered an MRI scan however [facility] decided on her own to proceed with [...] today with the patient. GREGG Gong [address] [facility] [facility], [place], [address], [facility] [employer] 06/29/2023 15:52:22
--- OUTSIDE RECORDS SUMMARY | 2024-04-16 20:28 | XMS_ITS | Continuity of Care Document ---
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 [address] [facility] [place], [place], [place], [id number], [place]. tel:[phone] Family History Family Member Type Diagnosis Age At Onset No Information Payers Payer name Insurance type Covered green party ID Authoriza tion(s) Medicare [facility] [id number] For Life Mdcr Supp [place] [id number] Social History Type Description Quantity Date Captured [...]
[2024-04-16 20:37] LABS: Troponin I < 0.012 ng/mL (0.000-0.034)
[2024-04-16 20:51] VITALS: BP 101/54; PULSE 82; RESP 17; O2SAT 98
[2024-04-16 22:06] LABS: Add Urine Microscopic? YES; Appearance Urine Clear (Clear); Bacteria Urine None Seen /hpf; Bilirubin Urine Negative (Negative); Blood Urine Negative (Negative); Color Urine Yellow (Yellow); Glucose Urine UA Negative (Negative); Ketones Urine Trace mg/dL (Negative); Leukocyte Esterase Ur Negative LEU/UL (Negative); Nitrate Urine Negative (Negative); Non Pathogenic Casts 0-2; Protein Urine Trace mg/dL (Negative); RBC Urine 0-2 /hpf (0-2); Specific Grav Ur 1.022 (1.001-1.035); Squamous Epithelial Cell Urine None Seen /hpf (Few); Urobilinogen Urine 0.2 mg/dL (<2.0); WBC Urine 0-5 /hpf (0-3); pH Urine 5.5 (5.0-9.0)
[2024-04-16 22:18] VITALS: BP 101/64; PULSE 77; RESP 16; O2SAT 98
[2024-04-16 22:46] VITALS: BP 120/58; PULSE 80; RESP 16; O2SAT 97
[2024-04-16 23:10] VITALS: BP 115/89; PULSE 80; RESP 17; O2SAT 98
== END 2024-04-16 23:12 | disposition home or self-care (01) ==
PROVIDERS: Emergency Provider Student in an Organized Health Care Education/Training Program; PCP Family Medicine
DX: R55 Syncope and collapse (principal); K59.00 Constipation, unspecified; E86.0 Dehydration; T47.2X5A Adverse effect of stimulant laxatives, initial encounter; I10 Essential (primary) hypertension; K21.9 Gastro-esophageal reflux disease without esophagitis
CPT/HCPCS: 36415; 71045; 80053; 81001; 84484; 85025; 93005; 96360; 99284; J7120